=== PATIENT | male | born 1960 | race Caucasian/White ===

== ENCOUNTER 2017-06-01 07:02 | Emergency (ER) | payer BC ==
[2017-06-01 07:25] VITALS: BP 118/70
--- NOTE | 2017-06-01 07:34 | UC ---
Throat Pain/Nasal King HPI - HPI Summary HPI Summary: Per sewing trimmer "FOR ONE WEEK - SINUS PRESSURE, PRESSURE BEHIND EYES. BLOODY MUCUS FROM HIS NOSE. SORE THROAT. STATES HE WAS RUNNING FEVER. OCCASIONAL COUGH. WAS HAVING ABDOMINAL CRAMPS WIHIC HAVES SUBSIDED SINCE HAVING A BM. " -he has had sinus infections in past and this is consistent. takes humira for psoriasis. he is told to come in right away when he is sick. has a lot of pressure behind his eyes. feels like his fever broke last night as he woke up sweating. -he has no abdominal cramping now. his abd feels fine. - History of Current Complaint Chief Complaint: UCRespiratory Stated Complaint: SINUS COMPLAINT,CRAMPS Time Seen by Provider: 06/01/17 07:07 - Allergies/Home Medications Allergies/Adverse Reactions: Allergies Allergy/AdvReac Type Severity Reaction Status Date / Time Sulfa Antibiotics Allergy Unknown chest pain Verified 06/01/17 07:11 Home Medications: Home Medications Adalimumab [Humira Pen] 40 mg SC 06/01/17 [History] Aspirin Low Dose CHEW TAB* [Aspirin Low Dose TAB*] 81 mg PO DAILY 06/01/17 [ History Confirmed 06/01/17] Budesonide/Formote 160/4.5(NF) [Symbicort 160/4.5 (NF)] 2 puff INH DAILY [History Confirmed 06/01/17] Fenofibrate [Triglide] 160 mg PO DAILY 06/01/17 [History Confirmed 06/01/17] Levothyroxine TAB* [Synthroid 137 MCG TAB*] 137 mcg PO DAILY 06/01/17 [History Confirmed 06/01/17] PMH/Surg Hx/FS Hx/Imm Hx Previously Healthy: Yes - psoriasis & RA. - Surgical History Surgical History: Yes Surgery Procedure, Year, and Place: LASIK EYE SURGERY 1999. NASAL SEPTUM X2. RIGHT KNEE SURGERY. RIGHT WRIST TENDON REPAIR - Family History Known Family History: Positive: Cardiac Disease, Diabetes - Social History Alcohol Use: None Substance Use Type: None Smoking Status (MU): Former Smoker When Did the Patient Quit Smoking/Using Tobacco: 2000 - Immunization History Most Recent Influenza Vaccination: FEB 2017 Review of Systems Constitutional: Fever Skin: Negative Eyes: Negative ENT: Sore Throat, Ear Ache - left ear plugged, Sinus Congestion, Sinus Pain/ Tenderness Respiratory: Negative Cardiovascular: Negative Gastrointestinal: Negative Genitourinary: Negative Motor: Negative Neurovascular: Negative Musculoskeletal: Negative Neurological: Negative Psychological: Negative Is Patient Immunocompromised?: Yes - humira, last dose 2 wks ago All Other Systems Reviewed And Are Negative: Yes Physical Exam Triage Information Reviewed: Yes Appearance: Well-Nourished, Ill-Appearing - mild Vital Signs: Initial Vital Signs Temp 97.2 F 06/01/17 07:16 Pulse 67 06/01/17 07:16 Resp 16 06/01/17 07:16 BP 118/70 06/01/17 07:16 Pulse Ox 98 06/01/17 07:16 Vital Signs Reviewed: Yes Eye Exam: Normal ENT: Positive: Hearing grossly normal, Pharyngeal erythema - +PND, Nasal congestion, TMs normal - left not visble d/t deep impacted cerumen (uses q tips) , rt is nml., Sinus tenderness - b/l maxillary Dental Exam: Normal Neck exam: Normal Neck: Positive: Supple, Nontender, No Lymphadenopathy Respiratory Exam: Normal Respiratory: Positive: Lungs clear, Normal breath sounds, No respiratory distress, No accessory muscle use Cardiovascular Exam: Normal Cardiovascular: Positive: RRR, No Murmur, Pulses Normal, Brisk Capillary Refill Abdomen Description: Positive: Nontender, Soft Musculoskeletal Exam: Normal Neurological Exam: Normal Psychological Exam: Normal Skin Exam: Normal Throat Pain/Nasal Course/Dx - Course Course Of Treatment: Lt cerumen impaction. adv otc gtts anad make appt for flushing. adv against q tips in canals. 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 - Differential Dx/Diagnosis Differential Diagnosis/HQI/PQRI: Pharyngitis, Sinusitis, URI Provider Diagnoses: Sinusitis Discharge - Discharge Plan Condition: Stable Disposition: HOME Prescriptions: Amoxicillin PO (*) [Amoxicillin 875 MG (*)] 875 mg PO BID #20 tab Patient Education Materials: Sinusitis (ED) Referrals: Clarisse Medrano NP [Primary Care Provider] - Additional Instructions: Make sure to take a probiotic daily while on antibiotics to help prevent a potential complication of antibiotic use called c diff. Some well known brands that can be found OTC are florastor, align and Intraxio health. Make sure to complete the entire prescription unless advised otherwise by your health care provider. -we discussed holding the humira until your symptoms resolve
== END 2017-06-01 07:46 | disposition home or self-care (01) ==
LOC: UCCORT 07:02
DX: J32.9 Chronic sinusitis, unspecified (principal); Z88.2 Allergy status to sulfonamides; Z87.891 Personal history of nicotine dependence
CPT/HCPCS: 99212; G0463

== ENCOUNTER 2017-06-03 11:57 | Emergency (ER) | payer BC ==
[2017-06-03 12:42] VITALS: BP 121/73
--- NOTE | 2017-06-03 13:24 | UC ---
Respiratory Complaint HPI - HPI Summary HPI Summary: 56 y/o male with h/o RA on nargis, no other PMH, last ABX use ~ 2 years ago presented with sinus congestion, body aches, chills, night sweats friday, given amoxicillin, has noted no improvement since that time with worsening of sinus symptoms, increased coughing, feeling like symptoms "going into throat". - History of Current Complaint Chief Complaint: UCGeneralIllness Stated Complaint: RE-CHECK SINUS Time Seen by Provider: 06/03/17 13:06 Hx Obtained From: Patient Onset/Duration: Gradual Onset, Lasting Days, Worse Since - daily Timing: Constant Severity Initially: Mild Severity Currently: Moderate - Allergies/Home Medications Allergies/Adverse Reactions: Allergies Allergy/AdvReac Type Severity Reaction Status Date / Time Sulfa Antibiotics Allergy Unknown chest pain Verified 06/03/17 12:42 PMH/Surg Hx/FS Hx/Imm Hx Previously Healthy: No - RA on nargis last dose 2 weeks ago - Surgical History Surgical History: Yes Surgery Procedure, Year, and Place: LASIK EYE SURGERY 1999. NASAL SEPTUM X2. RIGHT KNEE SURGERY. RIGHT WRIST TENDON REPAIR - Family History Known Family History: Positive: Cardiac Disease, Diabetes - Social History Alcohol Use: None Substance Use Type: None Smoking Status (MU): Former Smoker When Did the Patient Quit Smoking/Using Tobacco: 2000 - Immunization History Most Recent Influenza Vaccination: FEB 2017 Review of Systems Constitutional: Chills, Fatigue ENT: Nasal Discharge, Sinus Congestion, Sinus Pain/Tenderness Is Patient Immunocompromised?: No All Other Systems Reviewed And Are Negative: Yes Physical Exam Triage Information Reviewed: Yes Appearance: No Pain Distress, Well-Nourished, Ill-Appearing - mild Vital Signs: Initial Vital Signs Temp 98.7 F 06/03/17 12:38 Pulse 77 06/03/17 12:38 Resp 18 06/03/17 12:38 BP 121/73 06/03/17 12:38 Pulse Ox 97 06/03/17 12:38 Vital Signs Reviewed: Yes Eyes: Positive: Conjunctiva Clear ENT: Positive: Pharyngeal erythema - mild, Nasal congestion, Sinus tenderness, Uvula midline. Negative: TM bulging, TM dull, Tonsillar swelling, Tonsillar exudate Neck exam: Normal Neck: Positive: Supple, Nontender, No Lymphadenopathy Respiratory: Positive: Chest non-tender, Lungs clear, Normal breath sounds, No respiratory distress, No accessory muscle use. Negative: Crackles, Rhonchi, Stridor, Wheezing Cardiovascular: Positive: RRR, No Murmur, Pulses Normal UC Diagnostic Evaluation - Laboratory O2 Sat by Pulse Oximetry: 97 Respiratory Course/Dx - Course Course Of Treatment: sinusitis, failure with amoxicillin, changed to augmentin, follow up with PCP - Differential Dx/Diagnosis Differential Diagnosis/HQI/PQRI: Asthma, Bronchitis, Laryngitis Provider Diagnoses: acute sinusitis Discharge - Discharge Plan Condition: Fair Disposition: HOME Prescriptions: Amoxicillin/Clavulanate TAB* [Augmentin TAB 875*] 875 mg PO BID #20 tab Patient Education Materials: Sinusitis (ED) Referrals: No Primary Care Phys,NOPCP [Primary Care Provider] - Additional Instructions: - 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
== END 2017-06-03 13:50 | disposition home or self-care (01) ==
LOC: UCCORT 11:57
DX: J01.90 Acute sinusitis, unspecified (principal); M06.9 Rheumatoid arthritis, unspecified; Z88.2 Allergy status to sulfonamides; Z87.891 Personal history of nicotine dependence
CPT/HCPCS: 99212; G0463

== ENCOUNTER 2018-07-20 13:08 | Emergency (ER) | payer BC ==
[2018-07-20 13:16] VITALS: BP 142/85
--- NOTE | 2018-07-20 13:36 | ED ---
Psychiatric Complaint - HPI Summary HPI Summary: A 57 y/o M with PMHx: depression presents to ED with c/o ongoing depression onset several weeks ago. Denies SI and HI. Denies SOB, palpitations, no recent weight loss, no appetite changes. He is sleeping often. He says if he has a few hours without anything to do, he just sleeps. He has not been sleeping well for the past 2 weeks. He wears a C-PAP at night. His work is stressful but going well, and he hasn't had any recent changes. Pt is active: snow mobiling, does cross fit, plays golf. He says he still enjoys those things, but just "feels broken" and doesn't feel like himself. He will have unexpected bouts of crying. He feels "cloudy," and has difficulty concentrating. He states sometimes he thinks about "packing his car and leaving." He previously was on Paxil almost 20 years ago, during his divorce. It had unexpected side effects (causing erections) at the time. He hasn't been on medication since and feels like he's been able to manage his depression well since then. His long-term partner is in the ED with him and appears supportive. Pt is having some sexual dysfunction and took some Viagra recently, but it didn't help. His partner thinks this may be adding to the depression (and the patient confirms that it is.) His PCP is unaware of his mood changes. PMHx: sepsis, HDL, hypothyroidism, DM. Former smoker, quit in 2000, smoked for 25 years. No ETOH. No recreational drug use. - History Of Current Complaint Chief Complaint: EDMentalHealth Time Seen by Provider: 07/20/18 13:28 Hx Obtained From: Patient, Family/Jig Filler - long-term partner Onset/Duration: Lasting Weeks, Still Present Timing: Constant Severity Initially: Moderate Severity Currently: Severe Character: Depressed, Lethargic Associated Signs And Symptoms: Positive: Confused, Sleep Disturbance Has Suicidal: Denies: Thoughts Has Homicidal: Denies: Thoughts - Allergies/Home Medications Allergies/Adverse Reactions: Allergies Allergy/AdvReac Type Severity Reaction Status Date / Time amoxicillin [From Augmentin] Allergy Rash Verified 07/20/18 13:18 chloroquine Allergy Airway Verified 07/20/18 13:18 Obstruction clavulanic acid Allergy Rash Verified 07/20/18 13:18 [From Augmentin] Sulfa (Sulfonamide Allergy Anaphylatic Verified 07/20/18 13:18 Antibiotics) Shock Home Medications: Home Medications Adalimumab (NF) [Humira Pen (NF)] 40 mg SUBCUT Q14D 07/20/18 [History Confirmed 07/20/18] Albuterol HFA INHALER* [Ventolin HFA Inhaler*] 2 puff INH Q4H PRN 07/20/18 [ History Confirmed 07/20/18] Budesonide/Formote 80/4.5(NF) [Symbicort 80/4.5 (NF)] 2 puff INH DAILY 07/20/18 [History Confirmed 07/20/18] Docusate CAP* [Colace Cap*] 100 mg PO DAILY 07/20/18 [History Confirmed 07/20/18 ] Fenofibrate(NF) [Tricor(NF)] 160 mg PO DAILY 07/20/18 [History Confirmed ] Ibuprofen TAB* [Motrin TAB* 600 MG] 600 mg PO Q6H PRN 07/20/18 [History Confirmed 07/20/18] LoraTADine TAB(NF) [Claritin 10 MG TAB(NF)] 10 mg PO DAILY 07/20/18 [History Confirmed 07/20/18] Multivitamins/Minerals TAB* [Theragran/minerals TAB*] 1 tab PO DAILY 07/20/18 [ History Confirmed 07/20/18] [place]-3 Fatty Acids (Nf) [Fish Oil (NF)] 1,000 mg PO DAILY 07/20/18 [History Confirmed 07/20/18] PMH/Surg Hx/FS Hx/Imm Hx Previously Healthy: No Endocrine/Hematology History: Reports: Hx Diabetes, Hx Thyroid Disease - hypo Cardiovascular History: Reports: Hx Hypercholesterolemia Denies: Hx Hypertension, Hx Pacemaker/ICD Sensory History: Denies: Hx Hearing Aid Psychiatric History: Reports: Hx Depression Denies: Hx Panic Disorder - Surgical History Surgery Procedure, Year, and Place: LASIK EYE SURGERY 1999. NASAL SEPTUM X2. RIGHT KNEE SURGERY. RIGHT WRIST TENDON REPAIR Infectious Disease History: Unable to Obtain/Confirm Infectious Disease History: Denies: History Other Infectious Disease, Traveled Outside the [place] in Last 30 Days - Family History Known Family History: Positive: Cardiac Disease, Diabetes, Other - depression - Social History Occupation: Employed Full-time Lives: With Family Alcohol Use: None Hx Substance Use: No Substance Use Type: Reports: None Hx Tobacco Use: Yes Smoking Status (MU): Former Smoker Review of Systems Positive: Other - neg: weight loss, appetite changes Negative: Palpitations Negative: Shortness Of Breath Psychological: Other - pos: excess crying, lethargic, "cloudy", difficulty concentrating Positive: Depressed, Other - neg: SI, HI All Other Systems Reviewed And Are Negative: Yes Physical Exam - Summary Physical Exam Summary: Appearance: Well appearing, no pain distress Skin: warm, dry, reflects adequate perfusion Head/face: normal Eyes: EOMI, LEO ENT: mucous membranes moist Neck: supple, non-tender Respiratory: CTA, breath sounds present Cardiovascular: RRR, pulses symmetrical Abdomen: non-tender, soft Bowel Sounds: present Musculoskeletal: normal, strength/ROM intact Neuro: normal, sensory motor intact, A&Ox3 Psych: flat affect Triage Information Reviewed: Yes Vital Signs On Initial Exam: Initial Vitals Temp Pulse Resp BP Pulse Ox 97.8 F 78 16 142/85 95 07/20/18 13:10 07/20/18 13:10 07/20/18 13:10 07/20/18 13:10 07/20/18 13:10 Vital Signs Reviewed: Yes Diagnostics - Vital Signs Vital Signs Temp Pulse Resp BP Pulse Ox 07/20/18 13:10 97.8 F 78 16 142/85 95 - Laboratory Result Diagrams: 07/20/18 14:13 07/20/18 14:13 Lab Statement: Any lab studies that have been ordered have been reviewed, and results considered in the medical decision making process. Course/Dx - Course Course Of Treatment: Pt is medically clear for [facility] at 1500. 1618: Spoke with commercial carpenter: Per Dr. Ace, psych, pt is OK for discharge to f/u with out- patient care. Dx: major depression. - Differential Dx/Clinical Impression Differential Diagnosis/HQI/PQRI: Positive: Anxiety, Bipolar Disorder, Depression Provider Diagnosis: Major depression Discharge - Sign-Out/Discharge Documenting (check all that apply): Patient Departure - D/C - Discharge Plan Condition: Stable Disposition: HOME Prescriptions: buPROPion TAB* [Wellbutrin TAB*] 100 mg PO TID #90 tab Patient Education Materials: Depression (ED) Referrals: [place] [Other] (please follow up as soon as possible) [facility] [Outside] Tanika MONTGOMERY,Tra Andre [Primary Care Provider] - No Primary Care Phys,NOPCP [Medical Doctor] - - Billing Disposition and Condition Condition: STABLE Disposition: Home - Attestation Statements Document Initiated by Scribe: Yes Documenting Scribe: Ny Vega Provider For Whom [email or web address] is Documenting (Include Credential): Dr. Bola Potter MD Scribe Attestation: I, Ny Vega, scribed for Dr. Bola Potter MD on 07/20/18 at 1720. Scribe Documentation Reviewed: Yes Provider Attestation: The documentation as recorded by the rowenaibNy ott accurately reflects the service I personally performed and the decisions made by me, Dr. Bola Potter MD Status of Scribe Document: Viewed
[2018-07-20 14:27] LABS: ABS Basophils 0.1 10^3/ul (0-0.2); ABS Eosinophils 0.2 10^3/ul (0-0.6); ABS Lymphocytes 3.1 10^3/ul (1.0-4.8); ABS Monocytes 0.7 10^3/ul (0-0.8); ABS Neutrophils 4.7 10^3/ul (1.5-7.7); ABS Nucleated RBC 0 10^3/ul; Eosinophil % 2.3 %; Hematocrit 44 % (42-52); Hemoglobin 14.8 g/dl (14.0-18.0); Lymphocyte % 35.4 %; Mean Corpuscular HGB Conc 34 g/dl (31-36); Mean Corpuscular Hemoglobin 28 pg (27-31); Mean Corpuscular Volume 84 fL (80-94); Nucleated Red Blood Cells % 0.3; Platelet Count 268 10^3/ul (150-450); Red Blood Count 5.22 10^6/ul (4.00-5.40); Red Cell Distribution Width 13 % (10.5-15); White Blood Count 8.8 10^3/ul (3.5-10.8)
[2018-07-20 14:39] LABS: ALT 26 U/L (7-52); AST 20 U/L (13-39); Albumin 4.2 g/dL (3.2-5.2); Albumin/Globulin Ratio 1.3 (1-3); Alkaline Phosphatase 74 U/L (34-104); Anion Gap 7 mmol/L (2-11); BUN/Creatinine Ratio 17.6 (8-20); Blood Urea Nitrogen 26 mg/dL (6-24); CO2 Carbon Dioxide 25 mmol/L (22-32); Calcium 9.8 mg/dL (8.6-10.3); Chloride 105 mmol/L (101-111); EGFR Non-African American 48.8 (>60); Globulin 3.3 g/dL (2-4); Glucose 112 mg/dL (70-100); Sodium 137 mmol/L (135-145); Total Protein 7.5 g/dL (6.4-8.9)
[2018-07-20 15:06] LABS: Alcohol < 10 mg/dL (<10)
[2018-07-20 15:21] LABS: TSH (Thyroid Stimulating Horm) 3.21 mcIU/mL (0.34-5.60)
[2018-07-20 16:08] LABS: Urine Appearance Cloudy; Urine Bilirubin Negative (Negative); Urine Blood Negative (Negative); Urine Color Yellow; Urine Glucose Negative (Negative); Urine Ketones Negative (Negative); Urine Nitrite Negative (Negative); Urine Protein Negative (Negative); Urine Specific Gravity 1.023 (1.010-1.030); Urine Urobilinogen Negative (Negative)
== END 2018-07-20 16:40 | disposition home or self-care (01) ==
LOC: ED 13:08
DX: F32.9 Major depressive disorder, single episode, unspecified (principal); Z87.891 Personal history of nicotine dependence; Z88.2 Allergy status to sulfonamides; E11.9 Type 2 diabetes mellitus without complications; E03.9 Hypothyroidism, unspecified; E78.00 Pure hypercholesterolemia, unspecified
CPT/HCPCS: 36415; 80053; 80320; 81003; 84443; 85025; 99283; G0480